=== PATIENT | female | born 1960 | race African-American/Black ===

== ENCOUNTER 2017-01-21 13:13 | Emergency (ER) | payer OTHER ==
[~2017-01-21] VITALS: Ht 160 cm; Wt 61.2 kg
--- NOTE | ~2017-01-21 | EKG ---
[place] [id number] [facility] [place] [address] ELECTROCARDIOGRAM REPORT Name: ROLY CAGLE Room #: [facility] Cheko#: [id number] Admission: 01/21/17 Attend Phys: Discharge: 01/21/17 Date of : 58 Report #: [id number] THIS REPORT FOR: //name// [facility] ED Test Date: 2017-01-21 Test Time: 15:05:48 Pat Name: ROLY CAGLE Department: Room: Gender: F Pl Sql Developer: Yulissa LAMBERT : 1960 Requested By: Gordon Nickerson Order Number: [id number] MD: Irvin Lazaro Measurements Intervals [place] Rate: 111 P: 86 MN: 147 QRS: 72 QRSD: 83 T: 18 QT: 338 QTc: 460 Interpretive Statements Sinus tachycardia Atrial premature complex Left atrial enlargement Anteroseptal infarct, age indeterminate No previous ECG available for comparison Electronically Signed On 01-22-2017 8:44:09 CDT by Irvin Lazaro [email or web address] <ELECTRONICALLY SIGNED> By: Irvin Lazaro MD, [facility] 01/22/17 0844 [id number] 1505 Irvin Lazaro MD, FACC /EPI
[2017-01-21] MEDS ORDERED: ASPIR 8181 MG PO (13:46)
[2017-01-21] MEDS ORDERED: METFORMIN HCL500 MG PO (13:46)
[2017-01-21] MEDS ORDERED: LANTUS100 UNIT/M SUBQ (13:46)
[2017-01-21] MEDS ORDERED: DIOVAN320 MG PO (13:47)
[2017-01-21] MEDS ORDERED: VITAMIN D3400 UNIT PO (13:47)
[2017-01-21] MEDS ORDERED: CHLORTHALIDONE25 MG PO (13:47)
[2017-01-21] MEDS ORDERED: LIPITOR 20 MG T20 M1 PO (13:47)
[2017-01-21] MEDS ORDERED: MULTI VITAMIN1 EACH PO (13:48)
[2017-01-21] MEDS ORDERED: BIOTIN1000 MCG PO (13:49)
[2017-01-21 14:54] LABS: ABSOLUTE NEUTROPHILS 3.8 thou/uL (1.4-8.2); BASOPHILS 1.1 % (0.0-2.0); EOSINOPHILS 0.7 % (0.0-3.0); HEMATOCRIT 39.5 % (37.0-47.0); HEMOGLOBIN 13.6 gm/dL (12.0-15.0); LYMPHOCYTES 38.3 % (24.0-44.0); MCH 27.3 pg (26.0-34.0); MCHC 34.5 g/dL (28.0-37.0); MCV 79.1 fL (80.0-100.0); MONOCYTES 7.3 % (1.0-8.0); PLATELET COUNT 353 thou/uL (150-400); POLYS 52.6 % (36.0-66.0); RDW 13.1 % (10.5-14.5); WBC 7.2 thou/uL (4.0-11.0)
[2017-01-21 14:58] LABS: MANUAL DIFF NO
[2017-01-21 15:08] LABS: CALCIUM 10.8 mg/dL (8.5-10.1); CREATININE 0.9 mg/dL (0.6-1.0); POTASSIUM 3.1 mmol/L (3.5-5.1)
[2017-01-21 16:25] VITALS: BP 168/71
== END 2017-01-21 16:25 | disposition home or self-care (01) ==
LOC: ER 13:13
PROVIDERS: Emergency Medicine
DX: I69.354 Hemiplegia and hemiparesis following cerebral infarction affecting left non-dominant side (principal); E11.65 Type 2 diabetes mellitus with hyperglycemia; Z88.5 Allergy status to narcotic agent